=== PATIENT | female | born 2000 | race African-American/Black ===

== ENCOUNTER 2022-09-25 12:51 | Emergency (ER) | payer OTHER ==
[2022-09-25] MEDS ORDERED: HYDROcodone/Acetaminophen 5/325 mg Tablet ONE (14:03)
== END 2022-09-25 14:34 | disposition home or self-care (01) ==
LOC: ERS 12:51
DX: M25.561 Pain in right knee (principal); W01.0XXA Fall on same level from slipping, tripping and stumbling without subsequent striking against object, initial encounter; F17.290 Nicotine dependence, other tobacco product, uncomplicated

== ENCOUNTER 2022-10-04 02:28 | Emergency (ER) | payer OTHER | END 2022-10-04 04:59 | disposition home or self-care (01) | LOC: ERS 02:28 | DX: B34.9 Viral infection, unspecified (principal); Z20.822 Contact with and (suspected) exposure to COVID-19 | CPT/HCPCS: 87804; 99283; U0003; U0005 ==